=== PATIENT | female | born 1955 | race Two or more races ===

== ENCOUNTER 2024-11-27 08:09 | Inpatient (IN) | payer OTHER, MEDICAID ==
[~2024-11-27] VITALS: Ht 157.5 cm; Wt 80.9 kg
[~2024-11-27 08:09] MED LIST: CHOL1CAP21 PO; SIMV40TA18 PO
--- NOTE | 2024-11-27 08:36 | ED.PDOC ---
SOB-HPI HPI Comments 69 y/o F, accompanied by power of [place] attorney presents to the ED for CC of shortness of breath. Patient is a poor historian and reports to have been experiencing shortness of breath [id number]. Patient relays, associated symptoms of left eye pain/swelling. Patient endorses, having and using oxygen at home PRN however, provides no relief. Patient denies cough, fever, chest pain, nasal congestion, or sore-throat. No other symptoms or modifying factors are present at this time. Chief Complaint: Shortness of Breath Time Seen by MD: 08:30 Reviewed notes: Nurses Notes, Medications, Allergies Information Source: Patient, POA-Power of Bark Tanner Mode of Arrival: Ambulatory Severity: Moderate Timing: Months Duration: Since onset Context: At Rest PE Risk Factors: None History of: None Prehospital treatment: None Modifying Factors: Nothing Associated Signs and Symptoms: None Past Medical History PAST MEDICAL HISTORY: Denies Surgical History: Denies all surgeries POLYMER SCIENTIST History: Denies all POLYMER SCIENTIST Hx Family History Family History: Unknown Social History Smoker: Non-Smoker Alcohol: Denies ETOH Use Drugs: Denies Drug Use Lives In: Home Constitutional: denies: chills, diaphoresis, fatigue, fever, malaise, sweats, weakness, others EENTM: reports: eye pain (left eye); denies: blurred vision, double vision, ear bleeding, ear discharge, ear drainage, ear pain, ear ringing, eye redness, hearing loss, mouth pain, mouth swelling, nasal discharge, nose bleeding, nose congestion, nose pain, photophobia, tearing, throat pain, throat swelling, voice changes, others Respiratory: reports: shortness of breath; denies: cough, hemoptysis, orthopnea, SOB at rest, SOB with excertion, stridor, wheezing, others Cardiovascular: denies: chest pain, dizzy spells, diaphoresis, Dyspnea on exertion, edema, irregular heart beat, left arm pain, lightheadedness, palpitations, PND, syncope, others Gastrointestinal: denies: abdomen distended, abdominal pain, blood streaked bowels, constipated, diarrhea, dysphagia, difficulty swallowing, hematemesis, melena, nausea, poor appetite, poor fluid intake, rectal bleeding, rectal pain, vomiting, others Genitourinary: denies: abnormal vagina bleeding, burning, dyspareunia, dysuria, flank pain, frequency, hematuria, incontinence, pain, , vagina discharge, urgency, others Neurological: denies: dizziness, fainting, headache, left sided numbness, left sided weakness, numbness, paresthesia, pre-existing deficit, right sided numbness, right sided weakness, seizure, speech problems, tingling, tremors, weakness, others Musculoskeletal: denies: back pain, gout, joint pain, joint swelling, muscle pain, muscle stiffness, neck pain, others Integumetry: denies: bruises, change in color, change in hair/nails, dryness, laceration, lesions, lumps, rash, wounds, others Allergic/Immunocompromised: denies: Difficulty Healing, Frequent Infections, Hives, Itching, others Hematologic/Lymphatic: denies: anemia, blood clots, easy bleeding, easy bruising, swollen glands, others Endocrine: denies: excessive hunger, excessive sweating, excessive thirst, excessive urination, flushing, intolerance to cold, intolerance to heat, unexplained weight gain, unexplained weight loss, others Psychiatric: denies: anxiety, bipolar disorder, depression, hopeless, panic disorder, schizophrenia, sleepless, suicidal, others All Other Systems: Reviewed and Negative Physical Exam General Appearance: Moderate Distress HEENT: Normal ENT Inspection, Pharynx Normal, TMs Normal Neck: Full Range of Motion, Non-Tender, Normal, Normal Inspection Respiratory: Chest Non-Tender, No Accessory Muscle Use, Other (Coarse breath sounds) Cardiovascular: No Edema, No JVD, No Murmur, No Gallop, Normal Peripheral Pu lses, Regular Rate/Rhythm Breast Exam: Deferred Gastrointestinal: No Organomegaly, Non Tender, No Pulsatile Mass, Normal Bowel Sounds, Soft Genitalia: Deferred Pelvic: Deferred Rectal: Deferred Extremities: No calf tenderness, Normal capillary refill, Normal inspection, Normal range of motion, Non-tender, No pedal edema Musculoskeletal : Apperance: Normal Neurologic: Alert, television audio engineer II-XII nml as Tested, No Motor Deficits, Normal Affect, Normal Mood, No Sensory Deficits Cerebellar Function: Normal Reflexes: Normal Skin: Dry, Normal Color, Warm Peripheral Pulses: 3+ Radial (R), 3+ Radial (L) Lymphatic: No Adenopathy Was a procedure done? Was a procedure done?: No Differential Dx Differential Diagnosis: Anxiety, Asthma, Bronchitis, CHF, COPD, Pneumonia, Pulmonary Embolism, Sinusitis, Pharyngitis, URI X-Ray, Labs, Meds, VS Vital Signs Date Time Temp Pulse Resp B/P (MAP) Pulse Ox O2 Delivery O2 Flow Rate FiO2 11/27/24 09:01 18 92 Room Air* 0 21 11/27/24 08:57 98.1 62 15 124/63 (83) 94 98.1 11/27/24 08:57 62 15 94 Room Air 11/27/24 08:34 59 11/27/24 08:10 98.2 62 16 109/56 94 98.2 Current Medications Medications (Trade) Dose Ordered Sig/Magdiel Route Start Time Stop Time Status Last Admin Methylprednisolone Sodium Succinate (Solu Medrol) 125 mg ONCE ONCE IV 11/27/24 08:45 11/27/24 08:46 DC 11/27/24 08:50 Albuterol (Ventolin Medneb) 5 mg ONCE ONCE NEB 11/27/24 08:45 11/27/24 08:46 DC 11/27/24 09:00 Ipratropium [place] (Atrovent Medneb) 0.5 mg ONCE ONCE NEB 11/27/24 08:45 11/27/24 08:46 DC 11/27/24 09:00 He patient alert. Complaining of shortness a breath. Possible dementia. Placed on oxygen. Was given steroid. Was given breathing treatment. Explained to the patient. Continue monitoring. [place] [id number] Ph: [phone] DIAGNOSTIC IMAGING Diagnostic Imaging Report : [id number] Signed PATIENT: ROBERT LESLIE ACCT: [id number] UNIT: [id number] : 1955 LOC: ER ROOM / BED: / AGE / SEX: 69 / F ADM STATUS: REG ER SERVICE 0843 ORDERING PHYSICIAN: TIO TOWNSEND MD PROCEDURE(s): CXRP - CHEST PORTABLE REASON: sob ORDER NUMBER(s): [id number], ACCESSION NUMBER(s): [id number] CHEST RADIOGRAPH Indication: sob Technique: Single frontal view of the chest was obtained COMPARISON: None FINDINGS: Lines and Tubes: None Lungs: Clear Pleura: No effusion. No pneumothorax. Cardiomediastinal contours: Unremarkable Bones: Unremarkable IMPRESSION: No acute disease. ATED BY: MAYCOL MCCORMICK MD DICTATED DATE/TIME: 11/27/24932 SIGNED BY: MAYCOL MCCORMICK MD SIGNED DATE/TIME: 11/27/24932 CC: Time of 1ST Reevaluation: 09:00 Reevaluation 1ST: Unchanged Patient Education/Counseling: Diagnosis, Treatment Family Education/Counseling: Diagnosis, Treatment SEPSIS Sepsis Screen Date sepsis recognized/suspect: Nov 27, 2024 Time Sepsis recognized/suspect: 811 Recent Procedure: No On Antibiotic Therapy: No Respiratory Rate >20: No Heart Rate >90: No Temp<36 C (96.8 F) or >38.3 C: No SBP <90 or MAP <65 mmHG: No New Acute Mental Status Change: No Is the patient on CPAP, BIPAP,: No Physician Orders Electrocardigram (11/27/24 08:27) Electrocardigram (11/27/24 09:27) Troponin-I Hs (11/27/24 08:43) Complete Blood Count (11/27/24 08:43) Chest Portable (11/27/24 08:43) Urinalysis (11/27/24 08:43) Basic Metabolic Panel (11/27/24 08:43) Vital Signs Date Time Temp Pulse Resp B/P (MAP) Pulse Ox O2 Delivery O2 Flow Rate FiO2 11/27/24 09:01 18 92 Room Air* 0 21 11/27/24 08:57 98.1 62 15 124/63 (83) 94 98.1 11/27/24 08:57 62 15 94 Room Air 11/27/24 08:34 59 11/27/24 08:10 98.2 62 16 109/56 94 98.2 Medications Medications Dose Ordered Sig/Magdiel Route Start Time Stop Time Status Last Admin Dose Admin Albuterol 5 mg ONCE ONCE NEB 11/27/24 08:45 11/27/24 08:46 DC 11/27/24 09:00 Ipratropium [place] 0.5 mg ONCE ONCE NEB 11/27/24 08:45 11/27/24 08:46 DC 11/27/24 09:00 Methylprednisolone Sodium Succinate 125 mg ONCE ONCE IV 11/27/24 08:45 11/27/24 08:46 DC 11/27/24 08:50 Departure 1 Departure Time of Disposition: 09:28 Impression: Primary Impression: Acute respiratory distress Additional Impression: COPD exacerbation Disposition: ADMITTED INPATIENT Admit to: Med Surg Condition: Guarded Critical Care Note Critical Care Time?: No Stability Stability form required: No Heart Score Heart Score: Heart Score Response (Comments) Value History N/A 0 EKG N/A 0 Age N/A 0 Risk Factors N/A 0 Troponin N/A 0 Total 0 I personally scribed for TIO TOWNSEND MD ([email or web address]) on 11/27/24 at 08:36. Electronically submitted by Antonieta Keating ([email or web address]). I personally scribed for TIO TOWNSEND MD ([email or web address]) on 11/27/24 at 09:54. Electronically submitted by Antonieta Keating ([email or web address]). TIO TOWNSEND MD Nov 27, 2024 08:36
[2024-11-27] MEDS: methylPREDNISolone SOD SUCC 125 MG/2 ML VL IV ONE (08:50)
[2024-11-27] MEDS: IPRATROPIUM BROM 0.5 MG/2.5ML INH SOL NEB ONE (09:00)
[2024-11-27] MEDS: ALBUTEROL SULF 2.5 MG/0.5ML(0.5%) NEB SOLN NEB ONE (09:00)
--- NOTE | 2024-11-27 09:36 | DVH ---
CHEST RADIOGRAPH Indication: sob Technique: Single frontal view of the chest was obtained COMPARISON: None FINDINGS: Lines and Tubes: None Lungs: Clear Pleura: No effusion. No pneumothorax. Cardiomediastinal contours: Unremarkable Bones: Unremarkable IMPRESSION: No acute disease.
[2024-11-27 10:11] LABS: Chloride 107 mmol/L (98-107); Potassium 4.0 mmol/L (3.5-5.1); Sodium 142 mmol/L (136-145)
[2024-11-27 10:12] LABS: Anion Gap 8 (5-15); Carbon Dioxide 27 mmol/L (20-31)
[2024-11-27 10:13] LABS: Calcium 8.9 mg/dL (8.7-10.4)
[2024-11-27 10:18] LABS: BUN/Creatinine Ratio 21.6 (10.0-20.0); Blood Urea Nitrogen 16 mg/dL (9-23); Glucose 100 mg/dL (74-106)
[2024-11-27 10:25] LABS: Hematocrit 41.5 % (36.0-46.0); Hemoglobin 14.4 g/dL (12.2-16.2); Mean Corpuscular Hemoglobin 32.4 pg (28.0-32.0); Mean Corpuscular Volume 93.6 fL (80.0-100.0); Nucleated Red Blood Cells % 0.4 %
[2024-11-27 12:18] LABS: Alanine Aminotransferase 15.0 U/L (7-40); Albumin 4.3 g/dL (3.2-4.8); Alkaline Phosphatase 61.0 U/L (46-116); Bilirubin, Direct 0.3 mg/dL (<0.3); Bilirubin, Total 1.0 mg/dL (0.2-1.0); Magnesium 2.0 mg/dL (1.6-2.6); Total Protein 6.9 g/dL (5.7-8.2)
[2024-11-27] MEDS: AZITHROMYCIN 500MG/ 250ML 250 ML IV ONE (13:18)
[2024-11-27 13:29] VITALS: BP 102/70; PULSE 73; RESP 16; TEMP 98.4; O2SAT 94
--- NOTE | 2024-11-27 13:45 | DVHHPRES ---
History of Present Illness Resident Creating Document: GILMA ROMO RESIDENT History of Present Illness This is a 69-year-old female with history of stroke in 2013 who presented to the ER with a complaint of SOB. She reports shortness of breaths ongoing for the past couple of months, patient was given oxygen and inhaler by PCP which did not help her breathing. She reports shortness of breaths, daughter at bedside reports that her mom wheezes. She use the inhaler without any relief. Reports cough but no phlegm. Reports shortness of breath on exertion, denies orthopnea or PND. Patient quit smoking 2015, was a moderate to heavy smoker prior. Denies chest pain, nausea, vomiting, abdominal pain, constipation or diarrhea. Past medical history: History of stroke 2013 Past surgical history: None Home medications: Home oxygen is PRN, calcium and vitamin-D [place] Social history: Lives with daughter, quit smoking in 2013, denies drug use. Patient seen and examined in ER lobby. Noted decreased expiratory phase of breathing. Smoke: Quit ALCOHOL: none Drugs: None Lives: with Family Review of Systems Allergies: Coded Allergies: NO KNOWN ALLERGIES (Unverified , 11/27/24) Medications Current Medications Medications Dose Ordered Sig/Magdiel Route Start Time Stop Time Status Last Admin Dose Admin Albuterol 2.5 mg Q6HWA [facility] 11/27/24 18:00 Ipratropium [place] 0.5 mg Q6HWA [facility] 11/27/24 18:00 Exam Vital Signs Vital Signs Date Time Temp Pulse Resp B/P (MAP) Pulse Ox O2 Delivery O2 Flow Rate FiO2 11/27/24 13:29 98.4 73 16 102/70 94 0.0 21 98.4 11/27/24 09:01 Room Air* Exam Obese female patient sitting comfortably in a chair in the ER, no acute distress General: Obese,, afebrile, palor, mucosae are moist Cardiovascular: Regular S1 and S2. No murmurs, gallops or rubs. No JVD elevation. trace pitting pedal edema Respiratory: Bilateral decreased air entry, decreased expiratory phase, on room air Abdomen: Soft, nontender, nondistended, normoactive bowel sounds, no rebound tenderness, no organomegaly, no masses Genitourinary: Deferred MSK/skin: Mobilizes 4 limbs. Skin is dry and warm Neurological: No motor, no sensitive deficits, normal speech. Pupils are isocoric and reactive. Psych/Mental Status: A/Ox3 Labs/Xrays Labs Test 11/27/24 12:52 11/27/24 09:45 Range/Units White Blood Count 7.7 4.4-10.8 10^3/uL Red Blood Count 4.44 4.0-5.20 10^6/uL Hemoglobin 14.4 12.2-16.2 g/dL Hematocrit 41.5 36.0-46.0 % Mean Corpuscular Volume 93.6 80.0-100.0 fL Mean Corpuscular Hemoglobin 32.4 H 28.0-32.0 pg Mean Corpuscular Hemoglobin Concent 34.6 32.0-36.0 g/dL Red Cell Distribution Width 13.2 11.8-14.3 % Platelet Count 260 140-450 10^3/uL Mean Platelet Volume 8.8 6.9-10.8 fL Neutrophils (%) (Auto) 41.1 37.0-80.0 % Lymphocytes (%) (Auto) 48.6 10.0-50.0 % Monocytes (%) (Auto) 9.6 0.0-12.0 % Eosinophils (%) (Auto) 0.3 0.0-7.0 % Basophils (%) (Auto) 0.4 0.0-2.0 % Neutrophils # (Auto) 3.2 1.6-8.6 10 ^3/uL Lymphocytes # (Auto) 3.7 0.4-5.4 10 ^3/uL Monocytes # (Auto) 0.7 0-1.3 10 ^3/uL Eosinophils # (Auto) 0 0-0.8 10 ^3/uL Basophils # (Auto) 0 0-0.2 10 ^3/uL Nucleated Red Blood Cells 0.4 % Sodium Level 142 136-145 mmol/L Potassium Level 4.0 3.5-5.1 mmol/L Chloride Level 107 98-107 mmol/L Carbon Dioxide Level 27 20-31 mmol/L Anion Gap 8 5-15 Blood Urea Nitrogen 16 9-23 mg/dL Creatinine 0.74 0.550-1.02 mg/dL Glomerular Filtration Rate Calc 86 >90 mL/min BUN/Creatinine Ratio 21.6 H 10.0-20.0 Serum Glucose 100 74-106 mg/dL Calcium Level 8.9 8.7-10.4 mg/dL Magnesium Level 2.0 1.6-2.6 mg/dL Total Bilirubin 1.0 0.2-1.0 mg/dL Direct Bilirubin 0.3 <0.3 mg/dL Aspartate Amino Transferase (AST) 17 13-40 U/L Alanine Aminotransferase (ALT) 15 7-40 U/L Alkaline Phosphatase 61 46-116 U/L Troponin I High Sensitivity < 3 L </=34 ng/L B-Type Natriuretic Peptide 8.31 0-100 pg/mL Total Protein 6.9 5.7-8.2 g/dL Albumin 4.3 3.2-4.8 g/dL Thyroid Stimulating Hormone (TSH) 1.34 0.55-4.78 uIU/mL SEPSIS Sepsis Screen Date sepsis recognized/suspect: Nov 27, 2024 Time Sepsis recognized/suspect: 811 Recent Procedure: No On Antibiotic Therapy: No Respiratory Rate >20: No Heart Rate >90: No Temp<36 C (96.8 F) or >38.3 C: No SBP <90 or MAP <65 mmHG: No New Acute Mental Status Change: No Is the patient on CPAP, BIPAP,: No Physician Orders Electrocardigram (11/27/24 08:27) Electrocardigram (11/27/24 09:27) Chest Portable (11/27/24 08:43) Urinalysis (11/27/24 08:43) Blood Alcohol (11/27/24 11:57) Urinalysis (11/27/24 11:57) Drug Screen (11/27/24 11:57) Admit (11/27/24 12:37) Azithromycin 500mg/ 250ml (Zithromax 50 (11/27/24 12:45) Albuterol Medneb (Ventolin Medneb) (11/27/24 18:00) Ipratropium Medneb (Atrovent Medneb) (11/27/24 18:00) Covid19 Antigen Lanie (11/27/24 ) Rapid Influenza A&B (11/27/24 12:37) Mrsa Screen (11/27/24 12:37) Respiratory Culture W/ Gs (11/27/24 12:37) Cardiac Diet-2gna,Lofat,Lochol (11/27/24 Lunch) Full Code (11/27/24 13:21) Code Status (11/27/24 13:21) Vital Signs Date Time Temp Pulse Resp B/P (MAP) Pulse Ox O2 Delivery O2 Flow Rate FiO2 11/27/24 13:29 98.4 73 16 102/70 94 0.0 21 98.4 11/27/24 13:22 98.4 73 16 102/70 (81) 95 98.4 11/27/24 09:01 18 92 Room Air* 0 21 11/27/24 08:57 98.1 62 15 124/63 (83) 94 98.1 11/27/24 08:57 62 15 94 Room Air 11/27/24 08:34 59 11/27/24 08:10 98.2 62 16 109/56 94 98.2 Laboratory Tests Test 11/27/24 09:45 White Blood Count 7.7 10^3/uL (4.4-10.8) Medications Medications Dose Ordered Sig/Magdiel Route Start Time Stop Time Status Last Admin Dose Admin Albuterol 5 mg ONCE ONCE NEB 11/27/24 08:45 11/27/24 08:46 DC 11/27/24 09:00 5 MG Azithromycin 250 ml @ 125 mls/hr ONCE ONCE IV 11/27/24 12:45 11/27/24 14:44 11/27/24 13:18 125 MLS/HR Ipratropium [place] 0.5 mg ONCE ONCE NEB 11/27/24 08:45 11/27/24 08:46 DC 11/27/24 09:00 0.5 MG Methylprednisolone Sodium Succinate 125 mg ONCE ONCE IV 11/27/24 08:45 11/27/24 08:46 DC 11/27/24 08:50 125 MG Assessment/Plan Assessment/Plan Acute COPD exacerbation with pneumonitis COVID/flu/MRSA nares pending Duo nebs ordered IV azithromycin started 11/27 Maintain O2 saturation 88-92% Likely congestive heart failure, ?preserved - exacerbation BNP WNL BMI 31 X-ray shows congestion Pedal edema IV Lasix 40 mg ordered Echocardiogram ordered History of CVA Continue aspirin and atorvastatin daily Follow up with the A1c Cardiac diet Lovenox 40 mg sc daily Plan discussed with daughter, patient ER in which all questions been Goals of care discussed with the patient for 20 minutes, full code status Case discussed with Dr. Hdez I was physically present for the alarcon portions of the service provided to patient by THE RESIDENT. I have reviewed the documentation, discussed the case with resident and agree with the resident's documentation except as noted. Also the patient's clinical case was discussed with the patient's nurse. This medical document was created using an electronic medical record system with computerized dictation system. Although this document has been carefully reviewed, there might still be some phonetic and typographical errors. These areas are purely typographical due to imperfections of the software programs, and do not reflect any compromise in the patient's medical care. Late signature. Plan discussed with: Patient, Daughter, Other (Nurse) My Orders Orders - GILMA ROMO Procedure Category Date Status Time Blood Alcohol LAB 11/27/24 In Process 11:57 Urinalysis LAB 11/27/24 Logged 11:57 Drug Screen LAB 11/27/24 Logged 11:57 Admit ADMIT 11/27/24 Transmitted 12:37 Azithromycin 500mg/ PHA 11/27/24 In Process 250ml (Zithromax 50 12:45 Albuterol Medneb PHA 11/27/24 In Process (Ventolin Medneb) 18:00 Ipratropium Medneb PHA 11/27/24 In Process (Atrovent Medneb) 18:00 Covid19 Antigen [place]anie LAB 11/27/24 Logged Rapid Influenza A&B LAB 11/27/24 Logged 12:37 Mrsa Screen THERESE 11/27/24 Logged 12:37 Respiratory Culture THERESE 11/27/24 Logged W/ Gs 12:37 Cardiac DIET 11/27/24 Transmitted Diet-2gna,Lofat,Lochol Lunch Full Code LITO 11/27/24 In Process 13:21 Code Status CODE 11/27/24 Transmitted 13:21 Date of Service: Nov 27, 2024 Billing Provider: UMANG HDEZ MD Common Visit Codes: 90990-[id number] INP/OBS CARE (HIGH) Secondary Visit Codes: [id number] CARE PLAN 30 MINUTES (20 minutes) GILMA ROMO RESIDENT Nov 27, 2024 13:45 UMANG HDEZ MD Nov 29, 2024 06:17
[2024-11-27] MEDS: FUROSEMIDE 40 MG/4 ML VIAL IV ONE (16:12)
[2024-11-27 19:49] VITALS: PULSE 64; RESP 14; O2SAT 93
[2024-11-27] MEDS: ALBUTEROL SULF 2.5 MG/0.5ML(0.5%) NEB SOLN NEB SCH (19:49)
[2024-11-27] MEDS: IPRATROPIUM BROM 0.5 MG/2.5ML INH SOL NEB SCH (19:49)
[2024-11-27 19:55] VITALS: PULSE 63; RESP 16; O2SAT 99
[2024-11-27 21:12] VITALS: BP 126/73; PULSE 69; PULSE 74; RESP 88; TEMP 98.4; O2SAT 88
[2024-11-27 21:13] VITALS: BP 135/61; PULSE 83; RESP 22; TEMP 98.2; O2SAT 88
[2024-11-27] MEDS: ATORVASTATIN 20 MG TAB PO SCH (22:00)
[2024-11-28] VITALS (14 sets, daily range): BP systolic 113–135; BP diastolic 63–84; PULSE 61–101; RESP 16–20; TEMP 98.4–98.8; O2SAT 87–100
[2024-11-28 03:58] LABS: COVID19 ANTIGEN SOFIA FIA NEGATIVE (NEGATIVE)
[2024-11-28 08:36] LABS: Urine Protein, UAD Negative (Negative)
[2024-11-28 08:48] LABS: Amphetamine Screen, Urine Neg (NEGATIVE); Barbiturate Scree,Urine Neg (NEGATIVE); Benzodiazephine Screen, Urine Neg (NEGATIVE); Cannabinoid Screen, Urine Neg (NEGATIVE); Cocaine Screen, Urine Neg (NEGATIVE); Opiate Scree,Urine Neg (NEGATIVE); Phencyclidine Screen, Urine Neg (NEGATIVE)
[2024-11-28 11:16] LABS: Hepatitis B Surface Antigen Negative (Negative); Hepatitis C Antibody Negative (Negative)
--- NOTE | 2024-11-28 12:02 | DVHSR ---
APPROVED REPORT EXAM: Two-dimensional and M-mode echocardiogram with Doppler and color Doppler. Blood Pressure: 135/84 mmHg INDICATION Bilateral congestion, EF RISK FACTORS Height: 62, Weight: 173 DIMENSIONS LVDd4.2 (3.8-5.7cm)LA (2D)4.2 (1.9-4.0cm)Aortic Root4.0 (2.0-3.7cm) LVDs2.2 (2.5-4.0cm)LA (MM) (1.9-4.0cm)Aortic Cusp Exc1.9 (1.5-2.0cm) EF (%) 80.0 (55-70%)Rt. Atrium (1.9-4.0cm)Asc. Aorta cm Mitral Valve MitralMitral Stenosis E wave0.70m/sMV Mean GR.mmHg A wave0.81m/sMV Peak GR.mmHg E/A ratio0.92D MVAcm2 DECEL [id number] 1/2 [id number] IVRTmsDop MVA4.30cm2 Aortic Valve Aortic ValveAortic Stenosis V11.78m/Roma Mean GR.10mmHg V22.14m/Roma Peak GR.18mmHg LVOT Diameter1.8 (1.8-2.4cm)Doppler AVA2.12cm2 AI P 1/2 Idcr137.02ms Tricuspid Valve TR Velocity2.77m/s [id number] Other Information Technically limited study due to body habitus. Conclusion lvef 75% borderline LVH left atrium enlarged no severe valve abnormalities noted mild aortic regurg
--- NOTE | 2024-11-28 15:28 | DVHPNRES ---
Progress Note Date Seen: Nov 28, 2024 Resident Creating Document: PAWEL SALINAS RESIDENT Medical Necessity Reason Pt with a Central, PICC or Fol: No Subjective Review of Systems This is a 69-year-old female with history of stroke in 2013 who presented to the ER with a complaint of SOB. She reports shortness of breaths ongoing for the past couple of months, patient was given oxygen and inhaler by PCP which did not help her breathing. She reports shortness of breaths, daughter at bedside reports that her mom wheezes. She use the inhaler without any relief. Reports cough but no phlegm. Reports shortness of breath on exertion, denies orthopnea or PND. Patient quit smoking 2015, was a moderate to heavy smoker prior. Denies chest pain, nausea, vomiting, abdominal pain, constipation or diarrhea. Past medical history: History of stroke 2013 Past surgical history: None Social history: Lives with daughter, quit smoking in 2013, denies drug use. Home medications: Home oxygen is PRN, calcium and vitamin-D Objective vital signs Vital Sign Date Time Temp Pulse Resp B/P (MAP) Pulse Ox O2 Delivery O2 Flow Rate FiO2 11/28/24 12:58 98.5 75 16 119/63 (81) 91 98.5 11/28/24 10:00 Nasal Cannula* 2 28 Total Intake and Output 11/27/24 11/27/24 11/28/24 15:00 23:00 07:00 Intake Total 840 ml Balance 840 ml medications Current Medications Medications Dose Ordered Sig/Magdiel Route Start Time Stop Time Status Last Admin Dose Admin Albuterol 2.5 mg Q6HWA [facility] 11/27/24 18:00 11/28/24 12:36 2.5 MG Ipratropium [place] 0.5 mg Q6HWA [facility] 11/27/24 18:00 11/28/24 12:36 0.5 MG Aspirin 81 mg DAILY PO 11/28/24 10:00 11/28/24 10:00 81 MG Atorvastatin Calcium 40 mg HS PO 11/27/24 22:00 Azithromycin 250 ml @ 125 mls/hr DAILY IV 11/29/24 10:00 11/30/24 23:33 Future Hold Examination patient is lying in bed General: Obese, afebrile, palor, mucosae are moist Cardiovascular: Regular S1 and S2. No murmurs, gallops or rubs. No JVD elevation. Trace pitting pedal edema Respiratory: Bilateral decreased air entry, decreased expiratory phase, on room air Abdomen: Soft, nontender, nondistended, normoactive bowel sounds, no rebound tenderness, no organomegaly, no masses MSK/skin: Mobilizes 4 limbs. Skin is dry and warm Neurological: No motor, no sensitive deficits, normal speech. Pupils are isocoric and reactive. Psych/Mental Status: A/Ox3 laboratory and microbiology Laboratory Tests 11/27/24 09:45 Test 11/27/24 09:45 Range/Units Serum Glucose 100 74-106 mg/dL Labs and/or images reviewed: Labs reviewed by me, Image(s) reviewed by me Problem List/Assessment/Plan Problem List/Assessment/Plan #Possible COPD due to HUBERT #Acute hypoxic respiratory failure -COVID/flu/MRSA nares negative -Duo nebs ordered -IV azithromycin started 11/27 -Maintain O2 saturation 88-92% #Likely congestive heart failure, ?preserved - exacerbation -BNP WNL -BMI 31 -X-ray shows congestion -Pedal edema -IV Lasix 40 mg ordered -Echocardiogram ordered-lvef 75%; borderline LVH; left atrium enlarged; no severe valve abnormalities noted; mild aortic regurg #History of CVA -Continue aspirin and atorvastatin daily GI prophylaxis: Not indicated DVT prophylaxis: Lovenox 40 mg sc daily Diet: Cardiac diet Goals of care discussed with the patient for more than 27 minutes: Full code status Case discussed with patient and nurse. Plan discussed with: Patient, Other (rn) PAWEL SALINAS RESIDENT Nov 28, 2024 15:28
[2024-11-28] MEDS: FUROSEMIDE 40 MG/4 ML VIAL IV ONE (15:35)
[2024-11-29] VITALS (9 sets, daily range): BP systolic 105–145; BP diastolic 70–86; PULSE 65–81; RESP 16–18; TEMP 97.5–98.5; O2SAT 89–100
--- NOTE | 2024-11-29 06:35 | ECG ---
[facility] Test Date: 2024-11-27 Test Time: 08:34:21 Pat Name: ROBERT LESLIE Department: ER Room: 0238 A Gender: F Operations Dispatcher: LIAT : 1955 Requested By: TIO TOWNSEND Order Number: [id number] Reading MD: Boris Corona Measurements Intervals [place] Rate: 59 P: 42 MA: 182 QRS: 46 QRSD: 74 T: 33 QT: 421 QTc: 417 Interpretive Statements Sinus rhythm Low voltage, precordial leads Electronically Signed On 12-05-2024 17:15:03 PDT by Boris Corona Please click the below link to view image of tracing.
--- NOTE | 2024-11-29 08:11 | ECG ---
[facility] Test Date: 2024-11-29 Test Time: 06:33:37 Pat Name: ROBERT LESLIE Department: Respiratoy Room: 0238 A Gender: F Stove Mounter: GAYLE : 1955 Requested By: MAYCOL SALINAS Order Number: [id number] Reading MD: Boris Corona Measurements Intervals [place] Rate: 61 P: 40 WI: 164 QRS: 46 QRSD: 82 T: 39 QT: 424 QTc: 427 Interpretive Statements Sinus rhythm Electronically Signed On 12-05-2024 18:31:16 PDT by Boris Corona Please click the below link to view image of tracing.
[2024-11-29] MEDS ORDERED: AZITHROMYCIN 500MG/ 250ML 250 ML IV SCH ×2 (10:00)
[2024-11-29] MEDS: AZITHROMYCIN 250 MG TAB PO ONE (13:36)
[2024-11-29 15:00] LABS: Chloride 103 mmol/L (98-107); Potassium 4.4 mmol/L (3.5-5.1); Sodium 139 mmol/L (136-145)
[2024-11-29 15:01] LABS: Anion Gap 9 (5-15); Calcium 9.9 mg/dL (8.7-10.4); Carbon Dioxide 27 mmol/L (20-31)
[2024-11-29 15:06] LABS: BUN/Creatinine Ratio 20.6 (10.0-20.0); Blood Urea Nitrogen 21 mg/dL (9-23); Glucose 136 mg/dL (74-106)
[2024-11-29] MEDS ORDERED: AZIT500T66 PO (16:37)
[2024-11-29] MEDS ORDERED: CETI-83 OR (16:37)
--- NOTE | 2024-11-29 16:49 | DVHDSRES ---
Discharge Summary Date of Admission Resident Creating Document: PAWEL SALINAS RESIDENT Nov 27, 2024 at 12:37 Date of Discharge: Nov 29, 2024 Admitting Diagnosis #Likely congestive heart failure with preserved EF exacerbation Labs/Diagnostic Data: Laboratory Results Test 11/29/24 14:33 11/28/24 08:15 11/28/24 04:11 11/27/24 18:13 Sodium Level 139 mmol/L (136-145) Potassium Level 4.4 mmol/L (3.5-5.1) Chloride Level 103 mmol/L (98-107) Carbon Dioxide Level 27 mmol/L (20-31) Anion Gap 9 (5-15) Blood Urea Nitrogen 21 mg/dL (9-23) Creatinine 1.02 mg/dL (0.550-1.02) Glomerular Filtration Rate Calc 59 mL/min (>90) BUN/Creatinine Ratio 20.6 (10.0-20.0) Serum Glucose 136 mg/dL (74-106) Calcium Level 9.9 mg/dL (8.7-10.4) Urine Color Light-yellow (Yellow) Urine Clarity Turbid (Clear) Urine pH 5.5 (5.0-9.0) Urine Specific Labelle 1.019 (1.001-1.035) Urine Protein Negative (Negative) Urine Ketones Negative (Negative) Urine Blood Negative /uL (Negative) Urine Nitrite Negative (Negative) Urine Bilirubin Negative (Negative) Urine Urobilinogen Normal mg/dL (Negative) Urine Leukocyte Esterase 2+ /uL (Negative) Urine RBC 1 /hpf (0 - 4) Urine Microscopic WBC 3 /HPF (0-5) Urine Squamous Epithelial Cells Few /hpf (<5) Urine Bacteria Few /hpf (None Seen) Urine Glucose Normal mg/dL (Normal) Urine Opiates Screen Neg (NEGATIVE) Urine Fentanyl Screen Neg (NEGATIVE) Urine Barbiturates Screen Neg (NEGATIVE) Urine Phencyclidine Screen Neg (NEGATIVE) Urine Amphetamines Screen Neg (NEGATIVE) Urine Benzodiazepines Screen Neg (NEGATIVE) Urine Cocaine Screen Neg (NEGATIVE) Urine Cannabinoids Screen Neg (NEGATIVE) Hepatitis B Surface Antigen Negative (Negative) Hepatitis C Antibody Negative (Negative) Influenza Type A Antigen Negative (Negative) Influenza Type B Antigen Negative (Negative) SARS-CoV-2 Antigen (Rapid) Negative (NEGATIVE) Test 11/27/24 12:56 11/27/24 12:52 11/27/24 09:45 Hemoglobin A1c 5.9 % A1C (<5.7) Plasma/Serum Blood Alcohol < 3.0 mg/dL (<10) White Blood Count 7.7 10^3/uL (4.4-10.8) Red Blood Count 4.44 10^6/uL (4.0-5.20) Hemoglobin 14.4 g/dL (12.2-16.2) Hematocrit 41.5 % (36.0-46.0) Mean Corpuscular Volume 93.6 fL (80.0-100.0) Mean Corpuscular Hemoglobin 32.4 pg (28.0-32.0) Mean Corpuscular Hemoglobin Concent 34.6 g/dL (32.0-36.0) Red Cell Distribution Width 13.2 % (11.8-14.3) Platelet Count 260 10^3/uL (140-450) Mean Platelet Volume 8.8 fL (6.9-10.8) Neutrophils (%) (Auto) 41.1 % (37.0-80.0) Lymphocytes (%) (Auto) 48.6 % (10.0-50.0) Monocytes (%) (Auto) 9.6 % (0.0-12.0) Eosinophils (%) (Auto) 0.3 % (0.0-7.0) Basophils (%) (Auto) 0.4 % (0.0-2.0) Neutrophils # (Auto) 3.2 10 ^3/uL (1.6-8.6) Lymphocytes # (Auto) 3.7 10 ^3/uL (0.4-5.4) Monocytes # (Auto) 0.7 10 ^3/uL (0-1.3) Eosinophils # (Auto) 0 10 ^3/uL (0-0.8) Basophils # (Auto) 0 10 ^3/uL (0-0.2) Nucleated Red Blood Cells 0.4 % Magnesium Level 2.0 mg/dL (1.6-2.6) Total Bilirubin 1.0 mg/dL (0.2-1.0) Direct Bilirubin 0.3 mg/dL (<0.3) Aspartate Amino Transferase (AST) 17 U/L (13-40) Alanine Aminotransferase (ALT) 15 U/L (7-40) Alkaline Phosphatase 61 U/L (46-116) Troponin I High Sensitivity < 3 ng/L (</=34) B-Type Natriuretic Peptide 8.31 pg/mL (0-100) Total Protein 6.9 g/dL (5.7-8.2) Albumin 4.3 g/dL (3.2-4.8) Vitamin B12 Level 444 pg/mL (211-911) Vitamin D 25-Hydroxy 31.1 ng/mL (30.0-100) Thyroid Stimulating Hormone (TSH) 1.34 uIU/mL (0.55-4.78) Other Laboratory Tests 11/29/24 14:33 11/27/24 09:45 Brief Hx & Hospital Course: This is a 69-year-old female with history of stroke in 2013 who presented to the ER with a complaint of SOB. She reports shortness of breaths ongoing for the past couple of months, patient was given oxygen and inhaler by PCP which did not help her breathing. She reports shortness of breaths, daughter at bedside reports that her mom wheezes. She use the inhaler without any relief. Reports cough but no phlegm. Reports shortness of breath on exertion, denies orthopnea or PND. Patient quit smoking 2015, was a moderate to heavy smoker prior. Denies chest pain, nausea, vomiting, abdominal pain, constipation or diarrhea. Past medical history: History of stroke 2013 Past surgical history: None Social history: Lives with daughter, quit smoking in 2013, denies drug use. Home medications: Home oxygen is PRN, calcium and vitamin-D Brief history of hospitalization: Patient had likely congestive heart failure with preserved ejection fraction exacerbation. BNP was within normal limits. Patient has BMI of 31. X-ray shows congestion. Patient also had pedal edema which was pitting. We gave her IV Lasix 40 mg. An echocardiogram was done which showed ejection fraction of 75%, borderline LVH, left atrium enlargement, no severe valvular abnormalities, mild aortic regurgitation. After giving the Lasix the patient reported shortness of breath has been better. Patient might have possible COPD due to her obstructive sleep apnea. She had acute hypoxic respiratory failure requiring oxygen. A COVID and flu test came negative. MRSA nares were negative as well. We will order DuoNeb nebulization Which helped the patient's shortness of breath. We started her on IV azithromycin. We monitored her o2 saturation and maintain it between 88 to 92 %. Patient will stay or CVA we continued aspirin and atorvastatin daily. The patient reports feeling better and a shortness of breath has gone away. she is now stable for discharge and we will be discharging her with azithromycin for another 3 days. Patient has communicated understanding and agreed with the discharge plan. Patient is lying in bed General: Obese, afebrile, pallor, mucosae are moist Cardiovascular: Regular S1 and S2. No murmurs, gallops or rubs. No JVD elevation. Trace pitting pedal edema Respiratory: Bilateral decreased air entry, on room air Abdomen: Soft, nontender, nondistended, normoactive bowel sounds, no rebound tenderness, no organomegaly, no masses MSK/skin: Mobilizes 4 limbs. Skin is dry and warm Neurological: No motor, no sensitive deficits, normal speech. Pupils are isocoric and reactive. Psych/Mental Status: A/Ox3 Instructions: Continue home medication Cetirizine at night 1 tablet for 5 days Azithromycin 500 mg once a day for 3 days Follow up with PCP in 1 week Follow up with discharge clinic within 1 week Follow up with pulmonology outpatient Operations or Procedures CHEST RADIOGRAPH Indication: sob IMPRESSION: No acute disease. Condition at Discharge: Stable Final Diagnosis/Problems List #Likely congestive heart failure with preserved EF exacerbation #likely exacerbation of COPD #Acute hypoxic respiratory failure #History of CVA Discharge Disposition: Home Discharge Instruct/Medications Diet: Consistent carbohydrate, Cardiac 2g Na,low cholest Activity: No Restrictions, As Tolerated Follow Up/Referral: Follow up with PCP in 1 week Follow up with discharge clinic within 1 week Follow up with pulmonology outpatient Medications: Continue home medication Cetirizine at night 1 tablet for 5 days Azithromycin 500 mg once a day for 3 days Scheduled Azithromycin (Azithromycin), 500 MG PO DAILY Cholecalciferol (Vitamin D3), 1 CAP PO QWEEKLY, (Reported) Simvastatin (Simvastatin), 1 TAB PO DAILY, (Reported) Scheduled PRN Cetirizine Hcl (Eq Allergy Relief), 10 MG OR DAILY PRN Discharge Statement: "Patient was advised to return to the ER or call 911 if any headaches, dizziness, shortness of breath, chest pain, abdominal pain, bleeding, fevers, or worsening of medical condition. Patient was counseled about treatment plan, medications, possible side effects, patientverbalized understanding. All questions were answered to the best of my ability. This discharge took greater then 30 minutes in planning, reviewing documentation, counseling the patient, and discussing with other team members." ASSESSMENT ASSESSMENT Assessment Likely congestive heart failure with preserved ejection fraction Likely COPD exacerbation PAWEL SALINAS RESIDENT Nov 29, 2024 16:49
--- NOTE | 2024-11-29 18:01 | DVH ---
CHEST RADIOGRAPH Indication: f/u Technique: Single frontal view of the chest was obtained Comparison: XY CHEST PORTABLE on DOS: 11/27/24 FINDINGS: Lines and Tubes: None Lungs: No focal consolidation. Pleura: No effusion. No pneumothorax. Cardiomediastinal contours: Unremarkable Bones: No acute osseous abnormality. IMPRESSION: 1. No acute cardiopulmonary disease.
== END 2024-11-29 17:25 | disposition home or self-care (01) | DRG 189 ==
LOC: ER 08:09 → OVERFLOW 12:37 → EAST 12:39
PROVIDERS: ADMIT Student in an Organized Health Care Education/Training Program; ATTEND Student in an Organized Health Care Education/Training Program
DX: J96.01 Acute respiratory failure with hypoxia (principal); J44.1 Chronic obstructive pulmonary disease with (acute) exacerbation; I50.32 Chronic diastolic (congestive) heart failure; Z20.822 Contact with and (suspected) exposure to COVID-19; J98.4 Other disorders of lung; E66.9 Obesity, unspecified; G47.33 Obstructive sleep apnea (adult) (pediatric); Z68.31 Body mass index [BMI] 31.0-31.9, adult; Z79.899 Other long term (current) drug therapy; Z87.891 Personal history of nicotine dependence
CPT/HCPCS: 36415; 71045; 80048; 80076; 80307; 80320; 81001; 82306; 82607; 83036; 83735; 83880; 84443; 84484; 85025; 86803; 87081; 87340; 87426; 87804; 93005; 93306; 94640; 96374; G0378